=== PATIENT | female | born 1990 ===

== ENCOUNTER 2016-07-10 23:38 | Emergency (ER) | payer OTHER ==
[2016-07-10 23:44] VITALS: BP 134/69; PULSE 101; RESP 16; TEMP 98.4; O2SAT 100
--- NOTE | 2016-07-11 01:27 | ED PDOC ---
HPI: Skin/Bite Injury Time Seen by Provider: 07/11/16 01:25 Chief Complaint (Nursing): Breast Problem Chief Complaint (Provider): breast History Per: Patient History/Exam Limitations: no limitations Additional Complaint(s): 25yo F in ED for eval of breast- b/l suture removal after breast augmentation 21 days ago in [facility]-states that she was told to have sutures removed. pt denies fever draiange swelling to breast nipple leakage pain or fever/chills. Past Medical History Reviewed: Historical Data, Nursing Documentation, Vital Signs Vital Signs: Last Vital Signs Temp 98.4 F 07/10/16 23:41 Pulse 101 H 07/10/16 23:41 Resp 16 07/10/16 23:41 BP 134/69 07/10/16 23:41 Pulse Ox 100 07/10/16 23:41 - Medical History PMH: No Chronic Diseases - Family History Family History: States: No Known Family Hx - Allergies Allergies/Adverse Reactions: Allergies Allergy/AdvReac Type Severity Reaction Status Date / Time No Known Allergies Allergy Verified 07/10/16 23:41 Review of Systems ROS Statement: Except As Marked, All Systems Reviewed And Found Negative Skin: Positive for: Lesions Physical Exam - Reviewed Nursing Documentation Reviewed: Yes Vital Signs Reviewed: Yes - Physical Exam Appears: Positive for: Well, Non-toxic, No Acute Distress Head Exam: Positive for: ATRAUMATIC, NORMAL INSPECTION, NORMOCEPHALIC Skin: Positive for: Normal Color, Warm, DRY Cardiovascular/Chest: Positive for: Regular Rate, Rhythm Respiratory: Positive for: CNT, Normal Breath Sounds Extremity: Positive for: Other (breast bl: suture line intact , no wound dehesinsces noted no drainage noted no ertyhema noted nontender breast exam. ) Neurologic/Psych: Positive for: Alert, Oriented - ECG O2 Sat by Pulse Oximetry: 100 Medical Decision Making Medical Decision Making: unable to remove sutures at this time, requires further time for proper healing. pt strongly advised however to f.u with surgeon who performed the procedure. Disposition - Clinical Impression Clinical Impression: Normal breast exam - Patient ED Disposition Is Patient to be Admitted: No Counseled Patient/Family Regarding: Diagnosis, Need For Followup - Disposition Referrals: [facility] [place] [Outside] Disposition: Routine/Home Disposition Time: 01:32 Condition: STABLE Instructions: Stitches Removal (ED) Print Language: MAURITIAN
== END 2016-07-11 01:37 | disposition home or self-care (01) ==
LOC: H.ER 23:38
DX: Z48.02 Encounter for removal of sutures (principal)